=== PATIENT | male | born 2000 | race African-American/Black ===

== ENCOUNTER 2025-01-10 00:08 | Emergency (ER) | payer BC, SELFPAY ==
[2025-01-10 00:12] VITALS: BP 124/70
[2025-01-10 00:47] LABS: Hematocrit 38.9 % (39.0-52.0); Hemoglobin 13.5 g/dL (13.0-18.0); Mean Corp Hgb Conc. 34.7 g/dL (33.0-37.0); Mean Corpuscular Volume 78.1 fL (80.0-94.0); Platelet Count 255 10^3/uL (130-400); Red Cell Dist. Width 13.2 % (11.5-14.5)
[2025-01-10 01:01] LABS: ALT (SGPT) 25 U/L (0-50); AST (SGOT) 26 U/L (17-59); Albumin 4.0 g/dl (3.5-5.0); Alkaline Phosphatase 60 U/L (38-126); Blood Urea Nitrogen 15 mg/dl (9-20); Calcium 8.9 mg/dl (8.4-10.2); Carbon Dioxide 26 mmol/L (22-30); Chloride 110 mmol/L (98-107); Glucose 104 mg/dl (70-99); Potassium 4.1 mmol/L (3.5-5.1); Sodium 141 mmol/L (135-145); Total Protein 6.9 g/dl (6.3-8.2); eGFR > 60.00
[2025-01-10 01:03] LABS: Troponin I < 0.012 ng/ml
[2025-01-10 01:46] LABS: Nucleated Red Blood Cells % 0 % (-)
[2025-01-10 02:11] VITALS: BP 112/56
[2025-01-10 02:16] VITALS: BMI 29.9
[2025-01-10 03:56] VITALS: BP 115/64
[2025-01-10 04:00] VITALS: BP 119/54
[2025-01-10 04:03] LABS: Troponin I < 0.012 ng/ml
--- NOTE | 2025-01-10 04:28 | ED.GENMED ---
History of Present Illness
General
Chief Complaint: Chest Pain
Source: patient
Exam Limitations: none
Time Seen by Provider: 01/10/25 02:10
Nursing documentation reviewed up to this point in time: agreed with
History of Present Illness
History of Present Illness:
24-year-old male past medical history of hypothyroidism presenting to the emergency department today with concerns of left-sided chest pain. Claims that he was working out earlier in the day but denies any known injuries symptoms have since
significant improved very minimal at this point. Denies any associated nausea vomiting diaphoresis, abdominal pain. No history of recent trauma surgery immobilization, leg swelling blood clot history
Review of Systems
Review of Systems
Allergies reviewed?: Yes
All Other Systems: ROS reviewed and negative except as documented in HPI and ROS
Phy Exam
Physical Exam
Physical Exam:
GENERAL: Alert , in no apparent distress
EYE: pupils equal and reactive
NECK: Supple, no significant adenopathy.
ENT: o/p clr, mmm.
CARDIAC: Regular rate and rhythm .
LUNGS: Clear breath sounds bilaterally, no acute respiratory distress, no wheezes/rales/rhonchi
ABDOMEN: Soft, without focal tenderness, no r/g, no cvat
NEUROLOGICAL: Alert and oriented, no focal neuro deficits
SKIN: Warm and dry, skin intact.
MUSCULOSKELETAL: Patient has some degree of widening of his distal fingers. He claims that this is been present for many years. No edema, well perfused.
PSYCH: Normal and appropriate interaction.
Scores
Heart Score for Chest Pain Patients
STEMI patient?: No
History: Slightly or Non-Suspicious
ECG: Normal
Age: </= 45 years
Risk Factors: No Risk Factors
Troponin: </= Normal Limit
Heart Score for Chest Pain Patients: 0
Heart Score Risk: 2.5% MACE over next 6 weeks
Course
Orders/Labs/Results
Orders:
Orders
01/10/25 00:16
Electrocardiogram (*1) Urgent
Reason for Study: Chest Pain
EKG- Treatment ONCE
01/10/25 00:23
Complete Blood Count/With Diff Urgent
Comprehensive Metabolic Panel Urgent
TSH Urgent
Comment: ADDED
Total Thyroxine Urgent
Comment: ADDED
Troponin I Urgent
01/10/25 02:12
Chest [CR Chest - 2 Views ] Urgent
Comment:
Reason For Exam: cp L
01/10/25 02:53
Add On- LAB Urgent
Tests Added?: T4, TSH
01/10/25 03:14
Electrocardiogram (*1) Urgent
Reason for Study: Chest Pain
EKG- Treatment ONCE
01/10/25 03:30
Troponin I Urgent
Abnormal Lab Results
01/10/25
00:23
WBC 4.1 L 10^3/uL
(4.8-10.8)
Hct 38.9 L %
(39.0-52.0)
MCV 78.1 L fL
(80.0-94.0)
Neutrophils % 36.8 L %
(42.2-75.2)
Lymphocytes % 53.3 H %
(20.5-51.1)
Chloride 110 H mmol/L
(98-107)
Glucose 104 H mg/dl
(70-99)
01/10/25 00:23
01/10/25 00:23
Vital Signs
Initial and Last Documented VS:
Initial Vital Signs
Temp Pulse Resp BP Pulse Ox
98.2 F 64 18 124/70 97
01/10/25 00:12 01/10/25 00:12 01/10/25 00:12 01/10/25 00:12 01/10/25 00:12
Last Documented Vital Signs
Temp Pulse Resp BP Pulse Ox
98.2 F 58 14 119/54 100
01/10/25 00:12 01/10/25 04:15 01/10/25 04:15 01/10/25 04:00 01/10/25 04:15
MDM/Problems Addressed
MDM/Problems Addressed:
24-year-old male presenting to the emergency department today with concerns of left-sided chest pain described as a pressure ache and sharp. Very mild at this point. Here initial EKG without emergent findings troponin negative labs unremarkable
heart and lung examination normal. Second troponin ordered and normal as well. He was advised for close outpatient follow-up. Return precautions given.
*Pulse Oximetry
SaO2: 100
Oxygen Mode of Delivery: Room air
Patient hypoxic: no (100)
*Critical Care Note
Total Time (30-74mins, 75-104mins- exclusive of procedures): Not Applicable
ED Attending Note
-
Portions of this chart may have been created with voice recognition software.� Occasional wrong word or��sound alike� substitutions may have occurred due to the inherent limitations of voice recognition software.
Discharge Plan
Departure
Patient Disposition: Home (Routine Discharge)
Date of Disposition: 01/10/25
Time of Disposition: 04:31
Patient with high blood pressure during this ER visit?: No
Condition: Good
Covid-19: Not Applicable
Discharge Problem:
Chest pain
Instructions: Chest Pain PCP Follow Up
Prescriptions:
No Action
levothyroxine [Synthroid] 50 mcg Tablet
50 mcg 1XD
Referrals:
Duran Emmanuel DO [Family Provider, Family Practice]
Activity Restrictions/Additional Instructions:
You came to the emergency department today with concerns of chest pain. Here had a reassuring assessment. Please follow close with your primary care doctor within 1 to 2 weeks for further assessment. Return for any worsening, new or concerning
symptoms.
Interventions
Interventions:
*Risk Screen - Suicide Last Done: 01/10/25 00:12
*General Assessment Last Done: 01/10/25 02:15
*Neglect/Abuse Screening Last Done: 01/10/25 00:12
*ED- Fall Risk Assessment Last Done: 01/10/25 02:15
*ED COVID-19 Vaccine History Last Done: 01/10/25 02:15
*ED Influenza Vaccine History Last Done: 01/10/25 02:15
ED- Cardiac Assessment Last Done: 01/10/25 02:23
Discharge Date and Time
Print Language: [id number]
[2025-01-10 04:52] LABS: TSH 14.30 uIU/ml (0.47-4.68)
== END 2025-01-10 04:44 | disposition home or self-care (01) ==
LOC: EMR 00:08
PROVIDERS: Physician Assistant; EMERGENCY PHYSICIAN Emergency Medicine; FAMILY PHYSICIAN Family Medicine
DX: R07.89 Other chest pain (principal); E03.9 Hypothyroidism, unspecified
CPT/HCPCS: 99285; 71046; 80053; 84436; 84443; 84484; 85025; 93005